=== PATIENT | female | born 1995 | race Caucasian/White ===

== ENCOUNTER 2018-04-28 00:24 | Emergency (ER) | payer MEDICAID ==
[~2018-04-28] VITALS: Ht 167.6 cm; Wt 61.2 kg
[~2018-04-28 00:24] MED LIST: [UNRECOGNIZED DRUG - CODE] PO
[2018-04-28 01:15] VITALS: BP_SYST 118
[2018-04-28] MEDS ORDERED: NACL 0.9% 1,000 ML IV ONE (01:32)
[2018-04-28] MEDS ORDERED: ASPIRIN 81 MG TAB.CHEW PO ONE (01:45)
[2018-04-28] MEDS ORDERED: KETOROLAC TROMETHAMINE 30 MG VIAL IVP ONE (01:45)
[2018-04-28 02:12] LABS: BILIRUBIN,URINE NEGATIVE (NEGATIVE); CLARITY/URINE CLEAR (CLEAR); COLOR,URINE YELLOW (YELLOW); GLUCOSE,URINE NEGATIVE (NEGATIVE); KETONES,URINE NEGATIVE (NEGATIVE); LEUKOCYTE ESTERASE ,URINE NEGATIVE (NEGATIVE); NITRITE, URINE NEGATIVE (NEGATIVE); PROTEIN URINE NEGATIVE (NEGATIVE); UROBILINOGEN,URINE 0.2 (0.2-1.0)
[2018-04-28 02:14] LABS: BLOOD, URINE TRACE (NEGATIVE)
[2018-04-28 02:38] LABS: WBC,URINE 0-3 /HPF (0-3)
[2018-04-28 02:39] LABS: BACTERIA,URINE FEW /HPF (None Seen)
[2018-04-28 03:02] LABS: BASOPHILS # (AUTO) 0.1 K/uL (0.0-0.2); BASOPHILS % (AUTO) 1.1 % (0.0-2.0); EOSINOPHILS # (AUTO) 0.1 K/uL (0.0-0.4); EOSINOPHILS % (AUTO) 1.7 % (0.0-4.0); HEMATOCRIT 41.9 % (36-48); HEMOGLOBIN 14.2 g/dL (12.0-16.0); LYMPHOCYTES # (AUTO) 2.5 K/uL (1.0-5.5); LYMPHOCYTES % (AUTO) 40.1 % (20.5-51.5); MEAN CORPUSCULAR HEMOGLOBIN 31 pg (27-31); MEAN CORPUSCULAR HGB CONC 34 % (32-36); MEAN CORPUSCULAR VOLUME 91 fL (79.0-98.0); MONOCYTES # (AUTO) 0.4 K/uL (0.0-1.0); MONOCYTES % (AUTO) 5.8 % (1.7-9.3); NEUTROPHILS # (AUTO) 3.2 K/uL (1.8-7.7); NEUTROPHILS % (AUTO) 51.3 % (40.0-70.0); PLATELET COUNT (AUTO) 279 K/uL (130-430); RED BLOOD CELL COUNT(AUTO) 4.59 MIL/uL (4.2-6.2); RED CELL DISTRIBUTION WIDTH 12.3 % (9.0-15.0); WHITE BLOOD COUNT (AUTO) 6.3 K/uL (4.8-10.8)
[2018-04-28 03:05] LABS: CALCIUM 8.9 mg/dL (8.4-11.0); CHLORIDE 105 mmol/L (98-107); CREATININE 0.73 mg/dL (0.55-1.30); GLUCOSE 102 mg/dL (70-99); SODIUM SERUM 135 mmol/L (136-145); UREA NITROGEN, BLOOD 17 mg/dL (8-21)
[2018-04-28 03:11] LABS: ALANINE AMINOTRANSFERASE 19 U/L (12-78); ALBUMIN 3.9 g/dL (3.4-4.8); ASPARTATE AMINOTRANSFERASE 15 U/L (10-37); LIPASE 157 U/L (73-393); TOTAL BILIRUBIN 0.2 mg/dL (0.0-1.0)
[2018-04-28 03:19] LABS: ANION GAP < 3 (5-15); GFR AFRICAN AMERICAN 128 mL/min (>90)
[2018-04-28 03:28] LABS: INR 0.9 (0.8-1.2); PROTHROMBIN TIME 9.4 SECS (9.5-12.5)
[2018-04-28 03:55] VITALS: BP_SYST 107
== END 2018-04-28 03:55 | disposition home or self-care (01) ==
LOC: SED 00:24
DX: M94.0 Chondrocostal junction syndrome [Tietze] (principal); R07.89 Other chest pain
CPT/HCPCS: 36415; 71045; 80053; 81000; 82550; 83690; 84484; 85025; 85610; 85730; 93005; 96374; 99284; J1885; J7030

== ENCOUNTER 2018-09-04 07:24 | Emergency (ER) | payer MEDICAID ==
[~2018-09-04] VITALS: Ht 167.6 cm; Wt 63.5 kg
--- NOTE | 2018-09-04 07:24 | NUR ---
BROUGHT BACK TO BED #4 AND TRIAGED, REPORT GIVEN TO SADIE
[2018-09-04 07:25] VITALS: BP_SYST 122
--- NOTE | 2018-09-04 07:35 | NUR ---
ER Dr. Carl at bedside examining patient.
--- NOTE | 2018-09-04 07:38 | NUR ---
Patient is awake, alert, and oriented x4. She is complaining of 2 bug bites to right lower leg, 1 bug bite to right hip. Patient reports itchiness, denies pain at this time. No nausea or vomiting.
[2018-09-04 07:58] VITALS: BP_SYST 122
--- NOTE | 2018-09-04 07:58 | NUR ---
Patient given written and verbal discharge instructions and verbalizes understanding. ER MD discussed with patient the results and treatment provided. Patient in stable condition. ID arm band removed. Rx of keflex, tylenol given. Patient educated on pain management and to follow up with PMD. Pain Scale 0/10. Opportunity for questions provided and answered. Medication side effect fact sheet provided.
== END 2018-09-04 07:58 | disposition home or self-care (01) ==
LOC: SED 07:24
DX: S80.861A Insect bite (nonvenomous), right lower leg, initial encounter (principal); W57.XXXA Bitten or stung by nonvenomous insect and other nonvenomous arthropods, initial encounter; Y93.89 Activity, other specified; Y92.89 Other specified places as the place of occurrence of the external cause; Y99.8 Other external cause status
CPT/HCPCS: 99283

== ENCOUNTER 2019-07-11 16:53 | Emergency (ER) | payer MEDICAID ==
[~2019-07-11] VITALS: Ht 167.6 cm; Wt 68.0 kg
[2019-07-11 17:17] VITALS: BP_SYST 111
[2019-07-11] MEDS ORDERED: IBUPROFEN 800 MG TABLET PO ONE (19:30)
[2019-07-11 20:28] VITALS: BP_SYST 111
== END 2019-07-11 20:28 | disposition home or self-care (01) ==
LOC: SED 16:53
DX: S92.524A Nondisplaced fracture of middle phalanx of right lesser toe(s), initial encounter for closed fracture (principal); W23.0XXA Caught, crushed, jammed, or pinched between moving objects, initial encounter; Y93.02 Activity, running; Y92.89 Other specified places as the place of occurrence of the external cause; Y99.8 Other external cause status
CPT/HCPCS: 99283

== ENCOUNTER 2020-02-22 21:03 | Emergency (ER) | payer BC, MEDICAID ==
[~2020-02-22] VITALS: Ht 167.6 cm; Wt 68.0 kg
[~2020-02-22 21:03] MED LIST changes: +IBUP200T18 PO; -[UNRECOGNIZED DRUG - CODE] PO
[2020-02-22 21:10] VITALS: BP_SYST 141
--- NOTE | 2020-02-22 21:11 | NUR ---
Patient to ER bed 5 to gown for evaluation. Side rails up. Report given to GEORGE WHITT.
--- NOTE | 2020-02-22 21:14 | NUR ---
ER at bedside examining patient.
--- NOTE | 2020-02-22 21:15 | NUR ---
Pt presents to the ER c/o L arm pain x 1 hour ago. Pt reports pain while driving with weakness. Pt denies trauma to the arm. Pt has full ROM, able to autographer. Denies allergies.
--- NOTE | 2020-02-22 21:35 | NUR ---
Radiology at bedside.
[2020-02-22 22:46] VITALS: BP_SYST 141
--- NOTE | 2020-02-22 22:46 | NUR ---
Patient given written and verbal discharge instructions and verbalizes understanding. ER MD discussed with patient the results and treatment provided. Patient in stable condition. ID arm band removed. Rx of motrin given. Patient educated on pain management and to follow up with PMD. Opportunity for questions provided and answered. Medication side effect fact sheet provided.
== END 2020-02-22 23:48 | disposition home or self-care (01) ==
LOC: SED 21:03
DX: M79.602 Pain in left arm (principal); R20.0 Anesthesia of skin; R20.2 Paresthesia of skin
CPT/HCPCS: 81025; 93005; 99283